=== PATIENT | male | born 1980 | race Caucasian/White ===

== ENCOUNTER 2024-01-31 16:03 | Inpatient (IN) | payer MEDICAID, OTHER ==
[~2024-01-31] VITALS: Ht 180.3 cm; Wt 71.8 kg
[2024-01-31] MEDS: HALOPERIDOL 5MG/ML 1ML VIAL IM ONE (16:25)
[2024-01-31] MEDS: LORazepam 2 MG/ML 1ML VIAL IM ONE (16:25)
[2024-01-31] MEDS: diphenhydrAMINE 50MG/ML VIAL IM ONE (16:25)
[2024-01-31 18:14] LABS: HEMOGLOBIN 15.1 g/dl (13.5-17.5); MEAN CORPUSCULAR HEMOGLOBIN 31.7 pg (27.0-33.0); MEAN CORPUSCULAR HGB CONC 34.3 g/dl (32.0-36.5); MEAN CORPUSCULAR VOLUME 92.2 fl (80.0-96.0); PLATELET COUNT, AUTOMATED 341 10^3/uL (150-450); RED BLOOD COUNT 4.77 10^6/uL (4.30-6.10); WHITE BLOOD COUNT 9.9 10^3/uL (4.0-10.0)
[2024-01-31 18:40] LABS: ETHYL ALCOHOL (ETHANOL) 0.279 % (0.000-0.010)
[2024-01-31 18:41] LABS: SALICYLATE LEVEL < 3.0 MG/DL (<30)
[2024-01-31 18:42] LABS: ALBUMIN 4.3 G/DL (3.2-5.2); ALKALINE PHOSPHATASE 81 U/L (46-116); ALT/SGPT 25 U/L (7.0-40); AST/SGOT 27 U/L (<34); BILIRUBIN,DIRECT 0.2 MG/DL (<0.4); BILIRUBIN,TOTAL 0.6 MG/DL (0.3-1.2); BLOOD UREA NITROGEN 7 MG/DL (9-23); CALCIUM LEVEL 8.3 MG/DL (8.5-10.1); CARBON DIOXIDE LEVEL 24 MMOL/L (20-31); CHLORIDE LEVEL 110 MMOL/L (98-107); CREATININE FOR GFR 0.85 MG/DL (0.70-1.30); GLOMERULAR FILTRATION RATE > 60.0 (>60); GLUCOSE, FASTING 81 MG/DL (60-100); SODIUM LEVEL 143 MMOL/L (136-145); TOTAL PROTEIN 7.4 G/DL (5.7-8.2)
[2024-01-31 18:44] LABS: THYROID STIMULATING HORMONE 0.661 uIU/ML (0.55-4.78)
[2024-01-31] MEDS ORDERED: LORazepam 2 MG TAB PO PRN (18:45)
[2024-01-31] MEDS ORDERED: buspar PO (19:32)
[2024-01-31] MEDS ORDERED: SERO50TA PO (19:32)
[2024-01-31] MEDS: THIAMINE 100 MG TAB PO SCH (20:54)
[2024-01-31 23:47] LABS: AMPHETAMINES LEVEL URINE NEGATIVE (NEGATIVE); BARBITURATES URINE NEGATIVE (NEGATIVE); BENZODIAZEPINES URINE NEGATIVE (NEGATIVE); COCAINE METABOLITE URINE NEGATIVE (NEGATIVE); METHADONE URINE NEGATIVE (NEGATIVE); OPIATES URINE NEGATIVE (NEGATIVE); PHENCYCLIDINE URINE NEGATIVE (NEGATIVE)
[2024-01-31 23:48] LABS: CANNABINOIDS URINE POSITIVE (NEGATIVE)
[2024-02-01] MEDS ORDERED: MOM 30ML SUSPENSION UDC PO PRN (06:00)
[2024-02-01] MEDS ORDERED: IBUPROFEN 400MG TAB PO PRN (06:00)
[2024-02-01] MEDS ORDERED: ACETAMINOPHEN TAB 650MG DOSE (2X325MG) PO PRN (06:00)
[2024-02-01] MEDS ORDERED: MAALOX 30 ML SUSP *UDC PO PRN (06:00)
[2024-02-01] MEDS ORDERED: MED REC IN PROGRESS XX SCH (08:15)
[2024-02-01] MEDS ORDERED: FOLIC ACID 1MG TAB PO SCH (09:00)
[2024-02-01] MEDS ORDERED: MULTIVITAMINS/MINERALS THERAP 1 TAB PO SCH (09:00)
[2024-02-01] MEDS ORDERED: MED REC CURRENTLY UNOBTAINABLE XX SCH (10:25)
[2024-02-01] MEDS: diphenhydrAMINE 25MG CAP PO PRN (13:51)
[2024-02-01 15:58] VITALS: BP 137/90; TEMP 98.5; O2SAT 98
[2024-02-01] MEDS: traZODone 50 MG TAB PO PRN (20:22)
[2024-02-02 06:38] VITALS: BP 127/83; TEMP 97.9; O2SAT 96
[2024-02-02] MEDS ORDERED: busPIRone 10 MG TAB PO SCH (09:00)
[2024-02-02 10:50] LABS: BASO % 0.4 % (0.0-1.0); EOS # 0.1 10^3/uL (0.0-0.5); EOS % 0.7 % (0.0-3.0); LYMPH # 1.4 10^3/uL (1.5-5.0); LYMPH % 12.3 % (24.0-44.0); MEAN CORPUSCULAR HEMOGLOBIN 31.3 pg (27.0-33.0); MONO # 0.8 10^3/uL (0.0-0.8); MONO % 6.9 % (2.0-8.0); NEUTROPHILS # 8.9 10^3/uL (1.5-8.5); NEUTROPHILS % 79.3 % (36.0-66.0); PLATELET COUNT, AUTOMATED 380 10^3/uL (150-450); RED BLOOD COUNT 5.11 10^6/uL (4.30-6.10); WHITE BLOOD COUNT 11.2 10^3/uL (4.0-10.0)
[2024-02-02 11:23] LABS: ALBUMIN 4.5 G/DL (3.2-5.2); ALKALINE PHOSPHATASE 92 U/L (46-116); ALT/SGPT 31 U/L (7.0-40); AST/SGOT 41 U/L (<34); BILIRUBIN,TOTAL 1.8 MG/DL (0.3-1.2); BLOOD UREA NITROGEN 14 MG/DL (9-23); CALCIUM LEVEL 9.8 MG/DL (8.5-10.1); CARBON DIOXIDE LEVEL 28 MMOL/L (20-31); CHLORIDE LEVEL 105 MMOL/L (98-107); CREATININE FOR GFR 1.09 MG/DL (0.70-1.30); GLOMERULAR FILTRATION RATE > 60.0 (>60); GLUCOSE, FASTING 103 MG/DL (60-100); POTASSIUM SERUM 4.5 MMOL/L (3.5-5.1); SODIUM LEVEL 138 MMOL/L (136-145); TOTAL PROTEIN 7.9 G/DL (5.7-8.2)
[2024-02-02] MEDS: NICOTINE 14 MG/24 HR TRANSDERMAL TD SCH (11:24)
[2024-02-02] MEDS: GASTROGRAFIN SOLUTION 30ML PO SCH (11:25)
[2024-02-02] MEDS: busPIRone 10 MG TAB PO SCH (12:25)
[2024-02-02] MEDS ORDERED: ISOVUE-370 76% 100ML VIAL As Ordered ONE (12:37)
[2024-02-02 15:03] LABS: LIPASE 34 U/L (12-53)
[2024-02-02 15:05] LABS: AMYLASE 75 U/L (30-118)
[2024-02-02 15:13] LABS: PROCALCITONIN <0.04 ng/ml
[2024-02-02 17:25] VITALS: BP 138/74; TEMP 97.4; O2SAT 98
[2024-02-02] MEDS: QUEtiapine FUMARATE 50MG TAB PO SCH (20:06)
[2024-02-03] MEDS: THIAMINE 100 MG TAB PO SCH (08:22)
[2024-02-03] MEDS: MULTIVITAMINS/MINERALS THERAP 1 TAB PO SCH (08:22)
[2024-02-03] MEDS ORDERED: BUSP10TA79 PO ×2 (09:42→10:55)
[2024-02-03] MEDS ORDERED: THERTAB19 PO (09:42)
[2024-02-03] MEDS ORDERED: FOLI1TAB11 PO (09:42)
[2024-02-03] MEDS ORDERED: SERT50TA29 PO (09:42)
[2024-02-03] MEDS ORDERED: HOME MED LIST COMPLETE! XX SCH (09:45)
[2024-02-03] MEDS ORDERED: SERO50TA PO (10:55)
== END 2024-02-03 13:20 | disposition home or self-care (01) | DRG 755 ==
LOC: M ED 16:03 → M ED INP 02-01 05:58 → M PSY 02-01 11:46
PROVIDERS: ADMIT Psychiatry & Neurology Psychiatry; ATTEND Student in an Organized Health Care Education/Training Program
DX: F43.25 Adjustment disorder with mixed disturbance of emotions and conduct (principal); F10.94 Alcohol use, unspecified with alcohol-induced mood disorder; F41.9 Anxiety disorder, unspecified; F32.A Depression, unspecified; F17.210 Nicotine dependence, cigarettes, uncomplicated; Z11.52 Encounter for screening for COVID-19; Z79.899 Other long term (current) drug therapy; Z81.1 Family history of alcohol abuse and dependence; Z65.3 Problems related to other legal circumstances